=== PATIENT | male | born 1960 | race Caucasian/White ===

== ENCOUNTER 2021-01-18 13:11 | Emergency (ER) | payer OTHER ==
[2021-01-18] MEDS ORDERED: CYCLOBENZAPRINE10 MG PO (14:42)
[2021-01-18] MEDS ORDERED: MEDROL 4MG DOSEP4 MG PO (14:42)
[2021-02-04] MEDS ORDERED: NORVASC5 MG PO (14:18)
[2021-02-04] MEDS ORDERED: LIPITOR40 MG PO (14:18)
[2021-02-04] MEDS ORDERED: ELIQUIS5 MG PO (14:19)
[2021-02-04] MEDS ORDERED: OMEPRAZOLE20 M1 PO (14:19)
[2021-02-04] MEDS ORDERED: GABAPENTIN600 MG PO (14:20)
[2021-02-04] MEDS ORDERED: FENOFIBRATE160 MG PO (14:20)
[2021-02-04] MEDS ORDERED: HYDROCODON-ACE1 EAC1 PO (14:21)
[2021-02-04] MEDS ORDERED: BREO ELLIPTA 11 EACH INH (14:22)
[2021-02-10] MEDS ORDERED: NORCO 5-325 TA1 EACH PO (10:47)
[2021-03-12] MEDS ORDERED: VENTOLIN HFA IN18 GM INH (09:33)
[2021-03-12] MEDS ORDERED: VICODIN 10/3251 EACH PO (11:50)
== END 2021-01-18 15:07 | disposition home or self-care (01) ==
LOC: FER 13:11
DX: S33.5XXA Sprain of ligaments of lumbar spine, initial encounter (principal); S39.012A Strain of muscle, fascia and tendon of lower back, initial encounter; I10 Essential (primary) hypertension; Z98.1 Arthrodesis status; X50.9XXA Other and unspecified overexertion or strenuous movements or postures, initial encounter; Y92.009 Unspecified place in unspecified non-institutional (private) residence as the place of occurrence of the external cause
CPT/HCPCS: 72110; 96372; J1100; J1885

== ENCOUNTER 2021-01-27 16:45 | Emergency (ER) | payer OTHER ==
[~2021-01-27 16:45] MED LIST: CYCLOBENZAPRINE10 MG PO; MEDROL 4MG DOSEP4 MG PO
[2021-01-27 18:08] LABS: BASOPHIL 0.7 % (0-2); EOSINOPHIL 1.4 % (0-5); HCT 43.5 % (42.0-52.0); LYMPHOCYTE 34.4 % (15-48); MCHC 34.5 g/dL (32.0-36.0); MCV 92.8 fL (78.0-100.0); MONOCYTE 7.1 % (0-12); MPV 9.8 fL (6.0-9.5); NEUTROPHIL 56.1 % (41-80); NRBC 0; PLT 213 K/uL (150-400); RBC 4.69 M/uL (4.70-6.00); RDW 13.1 % (11.5-14.0); WBC 9.2 K/uL (4.0-10.5)
[2021-01-27 18:27] LABS: ALBUMIN 3.8 g/dL (3.4-5.0); BILIRUBIN - TOTAL 0.5 mg/dL (0.2-1.0); BUN/CREAT RATIO (CALC) 13.8 RATIO; CREATININE 0.8 mg/dL (0.67-1.17); GLOBULIN (CALCULATION) 3.3 g/dL; POTASSIUM 3.9 mmol/L (3.5-5.1); TOTAL PROTEIN 7.1 g/dL (6.4-8.2)
[2021-01-27 19:17] LABS: BILIRUBIN 1+ mg/dL (NEGATIVE); BLOOD NEGATIVE Ery/uL (NEGATIVE); CLARITY CLEAR (CLEAR); COLOR YELLOW (YELLOW); GLUCOSE (U) NORMAL (NORMAL); LEUKOCYTES NEGATIVE Leu/uL (NEGATIVE); NITRITE NEGATIVE (NEGATIVE); PROTEIN TRACE (LOW) mg/dL (NEGATIVE); SPECIFIC GRAVITY 1.025 (1.001-1.030); pH 5.5 (5.0-9.0)
[2021-01-27 19:32] LABS: CALCIUM OXALATE CRYSTALS TRACE
[2021-02-04] MEDS ORDERED: LIPITOR40 MG PO (14:18)
[2021-02-04] MEDS ORDERED: NORVASC5 MG PO (14:18)
[2021-02-04] MEDS ORDERED: OMEPRAZOLE20 M1 PO (14:19)
[2021-02-04] MEDS ORDERED: ELIQUIS5 MG PO (14:19)
[2021-02-04] MEDS ORDERED: FENOFIBRATE160 MG PO (14:20)
[2021-02-04] MEDS ORDERED: GABAPENTIN600 MG PO (14:20)
[2021-02-04] MEDS ORDERED: HYDROCODON-ACE1 EAC1 PO (14:21)
[2021-02-04] MEDS ORDERED: BREO ELLIPTA 11 EACH INH (14:22)
[2021-02-10] MEDS ORDERED: NORCO 5-325 TA1 EACH PO (10:47)
[2021-03-12] MEDS ORDERED: VENTOLIN HFA IN18 GM INH (09:33)
[2021-03-12] MEDS ORDERED: VICODIN 10/3251 EACH PO (11:50)
== END 2021-01-27 20:55 | disposition home or self-care (01) ==
LOC: FER 16:45
PROVIDERS: Emergency Medicine
DX: R10.9 Unspecified abdominal pain (principal); I10 Essential (primary) hypertension; F17.200 Nicotine dependence, unspecified, uncomplicated; E78.5 Hyperlipidemia, unspecified; Z90.89 Acquired absence of other organs; Z79.01 Long term (current) use of anticoagulants; Z79.899 Other long term (current) drug therapy
CPT/HCPCS: 36415; 80053; 81001; 82150; 83690; 85025; J1885; Q9967

== ENCOUNTER → 2021-02-10 | Day surgery (SDC) | payer OTHER ==
[~2021-02-10] VITALS: Ht 172.7 cm; Wt 97.5 kg
[~2021-02-10] MED LIST changes: +BREO ELLIPTA 11 EACH INH; +ELIQUIS5 MG PO; +FENOFIBRATE160 MG PO; +GABAPENTIN600 MG PO; +HYDROCODON-ACE1 EAC1 PO; +LIPITOR40 MG PO; +NORCO 5-325 TA1 EACH PO; +NORVASC5 MG PO; +OMEPRAZOLE20 M1 PO; +PERCOCET 7.5/321 TAB PO; +VENTOLIN HFA IN18 GM INH; +VIBRAMYCIN100 MG PO; +VICODIN 10/3251 EACH PO
== END | disposition home or self-care (01) ==
LOC: FAS 08:09
DX: T81.89XA Other complications of procedures, not elsewhere classified, initial encounter (principal); I10 Essential (primary) hypertension; Z96.659 Presence of unspecified artificial knee joint; E78.00 Pure hypercholesterolemia, unspecified; K21.9 Gastro-esophageal reflux disease without esophagitis; Z88.6 Allergy status to analgesic agent; Z79.01 Long term (current) use of anticoagulants
CPT/HCPCS: 93005; J1100; J1170; J2250; J2405; J2704; J3010; J7120

== ENCOUNTER 2021-02-14 07:04 | Emergency (ER) | payer OTHER ==
[~2021-02-14 07:04] MED LIST changes: -PERCOCET 7.5/321 TAB PO; -VENTOLIN HFA IN18 GM INH; -VIBRAMYCIN100 MG PO; -VICODIN 10/3251 EACH PO
[2021-02-14 08:08] LABS: BASOPHIL 0.7 % (0-2); HCT 38.3 % (42.0-52.0); HGB 13.2 g/dl (13.2-18.0); LYMPHOCYTE 23.7 % (15-48); MCH 31.8 pg (25.0-31.0); MCHC 34.5 g/dL (32.0-36.0); MCV 92.3 fL (78.0-100.0); MONOCYTE 8.9 % (0-12); NEUTROPHIL 62.2 % (41-80); NRBC 0; PLT 210 K/uL (150-400); RBC 4.15 M/uL (4.70-6.00); RDW 13.4 % (11.5-14.0)
[2021-02-14 08:09] LABS: BILIRUBIN NEGATIVE (NEGATIVE); BLOOD NEGATIVE Ery/uL (NEGATIVE); CLARITY CLEAR (CLEAR); COLOR YELLOW (YELLOW); GLUCOSE (U) 2+ mg/dL (NORMAL); LEUKOCYTES NEGATIVE Leu/uL (NEGATIVE); NITRITE NEGATIVE (NEGATIVE); PROTEIN NEGATIVE (NEGATIVE); UROBILINOGEN 0.2 mg/dL (0.2-1.0)
[2021-02-14 08:15] LABS: WBC 8.9 K/uL (4.0-10.5)
[2021-02-14 08:18] LABS: INR 1.04 (0.9-1.2); PTT 33.1 SECONDS (24.4-34.7)
[2021-02-14 08:27] LABS: ALBUMIN 3.3 g/dL (3.4-5.0); BILIRUBIN - TOTAL 0.4 mg/dL (0.2-1.0); BUN/CREAT RATIO (CALC) 25.4 RATIO; CREATININE 0.67 mg/dL (0.67-1.17); GLOBULIN (CALCULATION) 3.5 g/dL; POTASSIUM 3.7 mmol/L (3.5-5.1); TOTAL PROTEIN 6.8 g/dL (6.4-8.2)
[2021-02-14 08:33] LABS: LACTIC ACID 1.1 mmol/L (0.4-1.9)
[2021-02-14] MEDS ORDERED: VIBRAMYCIN100 MG PO (12:04)
[2021-02-14] MEDS ORDERED: PERCOCET 7.5/321 TAB PO (12:04)
[2021-03-12] MEDS ORDERED: VENTOLIN HFA IN18 GM INH (09:33)
[2021-03-12] MEDS ORDERED: VICODIN 10/3251 EACH PO (11:50)
== END 2021-02-14 12:20 | disposition home or self-care (01) ==
LOC: FER 07:04
PROVIDERS: Emergency Medicine
DX: T81.40XA Infection following a procedure, unspecified, initial encounter (principal); R10.9 Unspecified abdominal pain; I10 Essential (primary) hypertension; Z98.890 Other specified postprocedural states; Z20.822 Contact with and (suspected) exposure to COVID-19; Y83.8 Other surgical procedures as the cause of abnormal reaction of the patient, or of later complication, without mention of misadventure at the time of the procedure
CPT/HCPCS: 36415; 80053; 81003; 83605; 85025; 85610; 85730; 87040; J1170; J2543; Q9967; U0002

== ENCOUNTER → 2021-03-12 | Day surgery (SDC) | payer OTHER ==
[~2021-03-12] VITALS: Ht 172.7 cm; Wt 97.5 kg
[~2021-03-12] MED LIST changes: +PERCOCET 7.5/321 TAB PO; +VENTOLIN HFA IN18 GM INH; +VIBRAMYCIN100 MG PO; +VICODIN 10/3251 EACH PO
[2021-03-12 09:49] LABS: HCT 36.9 % (42.0-52.0); HGB 12.8 g/dl (13.2-18.0); MCH 32.2 pg (25.0-31.0); MCHC 34.7 g/dL (32.0-36.0); MCV 92.7 fL (78.0-100.0); RBC 3.98 M/uL (4.70-6.00); RDW 13.2 % (11.5-14.0); WBC 6.9 K/uL (4.0-10.5)
[2021-03-12 10:09] LABS: ALBUMIN 3.4 g/dL (3.4-5.0); BILIRUBIN - TOTAL 0.4 mg/dL (0.2-1.0); BUN/CREAT RATIO (CALC) 25.8 RATIO; CREATININE 0.62 mg/dL (0.67-1.17); GLOBULIN (CALCULATION) 3.3 g/dL; POTASSIUM 3.6 mmol/L (3.5-5.1); TOTAL PROTEIN 6.7 g/dL (6.4-8.2)
== END | disposition home or self-care (01) ==
LOC: FAS 08:53
PROVIDERS: Surgery
DX: L76.32 Postprocedural hematoma of skin and subcutaneous tissue following other procedure (principal); I10 Essential (primary) hypertension; E78.00 Pure hypercholesterolemia, unspecified; K21.9 Gastro-esophageal reflux disease without esophagitis; E66.9 Obesity, unspecified; E78.5 Hyperlipidemia, unspecified; F17.290 Nicotine dependence, other tobacco product, uncomplicated; Z79.01 Long term (current) use of anticoagulants; Z86.711 Personal history of pulmonary embolism; Z96.653 Presence of artificial knee joint, bilateral; Z98.1 Arthrodesis status
CPT/HCPCS: 36415; 80053; J1100; J1170; J2250; J2405; J2704; J3010; J7120

== ENCOUNTER 2021-04-07 10:10 | Emergency (ER) | payer OTHER ==
[~2021-04-07] VITALS: Ht 172.7 cm; Wt 97.5 kg
[2021-04-07 12:55] LABS: BILIRUBIN NEGATIVE (NEGATIVE); BLOOD NEGATIVE Ery/uL (NEGATIVE); CLARITY CLEAR (CLEAR); COLOR YELLOW (YELLOW); GLUCOSE (U) TRACE mg/dL (NORMAL); LEUKOCYTES NEGATIVE Leu/uL (NEGATIVE); NITRITE NEGATIVE (NEGATIVE); PROTEIN NEGATIVE (NEGATIVE); UROBILINOGEN 0.2 mg/dL (0.2-1.0)
[2021-04-07 12:55] LABS: EOSINOPHIL 3.5 % (0-5); HCT 41.9 % (42.0-52.0); MCHC 33.4 g/dL (32.0-36.0); MCV 92.7 fL (78.0-100.0); MONOCYTE 6.1 % (0-12); MPV 9.5 fL (6.0-9.5); NEUTROPHIL 50.7 % (41-80); NRBC 0; PLT 217 K/uL (150-400); RBC 4.52 M/uL (4.70-6.00); RDW 13.1 % (11.5-14.0); WBC 9.1 K/uL (4.0-10.5)
[2021-04-07 13:00] LABS: LYMPHOCYTE 38.4 % (15-48)
[2021-04-07 13:15] LABS: ALBUMIN 3.5 g/dL (3.4-5.0); BILIRUBIN - TOTAL 0.4 mg/dL (0.2-1.0); BUN/CREAT RATIO (CALC) 16.4 RATIO; CREATININE 0.73 mg/dL (0.67-1.17); GLOBULIN (CALCULATION) 3.4 g/dL; POTASSIUM 3.9 mmol/L (3.5-5.1); TOTAL PROTEIN 6.9 g/dL (6.4-8.2)
[2021-04-07] MEDS ORDERED: PERCOCET 5-3251 EACH PO (15:50)
== END 2021-04-07 16:16 | disposition home or self-care (01) ==
LOC: FER 10:10
PROVIDERS: Nurse Practitioner Family
DX: R10.9 Unspecified abdominal pain (principal); E78.5 Hyperlipidemia, unspecified; I10 Essential (primary) hypertension; J44.9 Chronic obstructive pulmonary disease, unspecified
CPT/HCPCS: 36415; 76705; 80053; 81003; 83605; 85025; J2270; J7030

== ENCOUNTER → 2021-04-17 | Day surgery (SDC) | payer OTHER ==
[~2021-04-17] VITALS: Ht 172.7 cm; Wt 97.5 kg
[~2021-04-17] MED LIST changes: +PERCOCET 5-3251 EACH PO
[2021-04-17 10:11] LABS: HCT 39.7 % (42.0-52.0); HGB 13.2 g/dl (13.2-18.0); MCH 31.1 pg (25.0-31.0); MCHC 33.2 g/dL (32.0-36.0); MCV 93.4 fL (78.0-100.0); MPV 9.7 fL (6.0-9.5); RBC 4.25 M/uL (4.70-6.00); RDW 12.9 % (11.5-14.0); WBC 7.1 K/uL (4.0-10.5)
[2021-04-17 10:38] LABS: INR 0.98 (0.9-1.2); PROTHROMBIN TIME 12.4 SECONDS (11.8-13.4); PTT 30.6 SECONDS (24.4-34.7)
[2021-04-17 10:47] LABS: ALBUMIN 3.3 g/dL (3.4-5.0); BILIRUBIN - TOTAL 0.3 mg/dL (0.2-1.0); BUN/CREAT RATIO (CALC) 25.4 RATIO; CREATININE 0.67 mg/dL (0.67-1.17); GLOBULIN (CALCULATION) 3.4 g/dL; POTASSIUM 4.1 mmol/L (3.5-5.1); TOTAL PROTEIN 6.7 g/dL (6.4-8.2)
== END | disposition home or self-care (01) ==
LOC: FAS 08:51
PROVIDERS: Surgery
DX: T81.89XA Other complications of procedures, not elsewhere classified, initial encounter (principal); L92.8 Other granulomatous disorders of the skin and subcutaneous tissue; L02.211 Cutaneous abscess of abdominal wall; I10 Essential (primary) hypertension; E78.5 Hyperlipidemia, unspecified; K21.9 Gastro-esophageal reflux disease without esophagitis; G89.29 Other chronic pain; M54.9 Dorsalgia, unspecified; F17.210 Nicotine dependence, cigarettes, uncomplicated; Z86.711 Personal history of pulmonary embolism; Z96.653 Presence of artificial knee joint, bilateral; Z88.6 Allergy status to analgesic agent; Z79.01 Long term (current) use of anticoagulants; Z79.899 Other long term (current) drug therapy
CPT/HCPCS: 36415; 80053; 85610; 85730; J1170; J1885; J2250; J2704; J3010; J7120

== ENCOUNTER 2021-09-25 12:16 | Emergency (ER) | payer OTHER ==
[2021-09-25 13:11] LABS: BILIRUBIN NEGATIVE (NEGATIVE); BLOOD NEGATIVE Ery/uL (NEGATIVE); CLARITY CLEAR (CLEAR); COLOR YELLOW (YELLOW); GLUCOSE (U) NORMAL (NORMAL); LEUKOCYTES NEGATIVE Leu/uL (NEGATIVE); NITRITE NEGATIVE (NEGATIVE); PROTEIN NEGATIVE (NEGATIVE); UROBILINOGEN 0.2 mg/dL (0.2-1.0); pH 6.5 (5.0-9.0)
[2021-09-25 13:14] LABS: BASOPHIL 0.6 % (0-2); EOSINOPHIL 2.6 % (0-5); HCT 41.9 % (42.0-52.0); HGB 14.1 g/dl (13.2-18.0); LYMPHOCYTE 33.4 % (15-48); MCH 31.5 pg (25.0-31.0); MCHC 33.7 g/dL (32.0-36.0); MCV 93.5 fL (78.0-100.0); MONOCYTE 5.5 % (0-12); MPV 10.1 fL (6.0-9.5); NEUTROPHIL 57.8 % (41-80); NRBC 0; PLT 217 K/uL (150-400); RBC 4.48 M/uL (4.70-6.00); RDW 12.5 % (11.5-14.0); WBC 6.9 K/uL (4.0-10.5)
[2021-09-25 13:35] LABS: ALBUMIN 3.6 g/dL (3.4-5.0); BILIRUBIN - TOTAL 0.3 mg/dL (0.2-1.0); BUN/CREAT RATIO (CALC) 14.5 RATIO; CREATININE 0.62 mg/dL (0.67-1.17); GLOBULIN (CALCULATION) 3.3 g/dL; POTASSIUM 3.7 mmol/L (3.5-5.1); TOTAL PROTEIN 6.9 g/dL (6.4-8.2)
== END 2021-09-25 14:09 | disposition home or self-care (01) ==
LOC: FER 12:16
PROVIDERS: Emergency Medicine
DX: K40.90 Unilateral inguinal hernia, without obstruction or gangrene, not specified as recurrent (principal); F17.200 Nicotine dependence, unspecified, uncomplicated
CPT/HCPCS: 36415; 80053; 81003; 85025; 99283; J1885

== ENCOUNTER → 2021-10-01 | Day surgery (SDC) | payer OTHER ==
[~2021-10-01] VITALS: Ht 172.7 cm; Wt 97.5 kg
[2021-10-01 09:42] LABS: HCT 40.5 % (42.0-52.0); HGB 13.9 g/dl (13.2-18.0); MCHC 34.3 g/dL (32.0-36.0); MCV 93.1 fL (78.0-100.0); MPV 9.8 fL (6.0-9.5); RBC 4.35 M/uL (4.70-6.00); RDW 12.7 % (11.5-14.0); WBC 7.5 K/uL (4.0-10.5)
[2021-10-01 09:55] LABS: ALBUMIN 3.7 g/dL (3.4-5.0); BILIRUBIN - TOTAL 0.3 mg/dL (0.2-1.0); CREATININE 0.6 mg/dL (0.67-1.17); TOTAL PROTEIN 6.7 g/dL (6.4-8.2)
== END | disposition home or self-care (01) ==
LOC: FAS 08:42
PROVIDERS: Surgery
DX: D17.6 Benign lipomatous neoplasm of spermatic cord (principal); K40.90 Unilateral inguinal hernia, without obstruction or gangrene, not specified as recurrent; E78.5 Hyperlipidemia, unspecified; Z88.8 Allergy status to other drugs, medicaments and biological substances; Z79.01 Long term (current) use of anticoagulants
CPT/HCPCS: 36415; 80053; 93005; C1781; J0690; J1100; J1170; J2250; J2405; J2704; J3010; J7120

== ENCOUNTER → 2021-10-17 | Day surgery (SDC) | payer OTHER ==
[~2021-10-17] VITALS: Ht 172.7 cm; Wt 97.5 kg
[~2021-10-17] MED LIST changes: +ENDOCET 10-3251 EACH PO
[2021-10-17 13:24] LABS: BASOPHIL 0.9 % (0-2); EOSINOPHIL 2.1 % (0-5); HCT 43.9 % (42.0-52.0); LYMPHOCYTE 29.4 % (15-48); MCH 31.5 pg (25.0-31.0); MCHC 34.2 g/dL (32.0-36.0); MCV 92.2 fL (78.0-100.0); MONOCYTE 5.9 % (0-12); MPV 9.4 fL (6.0-9.5); NEUTROPHIL 61.5 % (41-80); NRBC 0; PLT 234 K/uL (150-400); RBC 4.76 M/uL (4.70-6.00); RDW 12.9 % (11.5-14.0)
[2021-10-17 13:46] LABS: ALBUMIN 3.6 g/dL (3.4-5.0); BILIRUBIN - TOTAL 0.4 mg/dL (0.2-1.0); BUN/CREAT RATIO (CALC) 19.7 RATIO; CREATININE 0.66 mg/dL (0.67-1.17); GLOBULIN (CALCULATION) 3.7 g/dL; LACTIC ACID 0.9 mmol/L (0.4-1.9); TOTAL PROTEIN 7.3 g/dL (6.4-8.2)
[2021-10-17 14:20] LABS: TOTAL CELL COUNT 100
[2021-10-17 14:24] LABS: NEUTROPHILS(M) 68 % (41-80)
[2021-10-17 14:25] LABS: BLAST 1; LYMPHOCYTE(M) 31 % (15-48); PLATELET ESTIMATE NORMAL; PLATELET MORPHOLOGY NORMAL
--- NOTE | 2021-10-17 21:03 | NUR ---
Spoke with Dr. Parada concerning patient's post op pain medication script. The order was sent over to [facility]. However, they are closed until Tuesday. Pt was concered about not having pain medication until Tuesday and wanting to stay overnight. Can keep patient through the night for pain control and D/C in the morning per Dr. Parada. Pt denies wanting to stay the night and will D/C home.
== END | disposition home or self-care (01) ==
LOC: FER 11:54 → FOR 16:43
PROVIDERS: Emergency Medicine
DX: T81.49XA Infection following a procedure, other surgical site, initial encounter (principal); K40.30 Unilateral inguinal hernia, with obstruction, without gangrene, not specified as recurrent; E78.5 Hyperlipidemia, unspecified; F17.210 Nicotine dependence, cigarettes, uncomplicated; I10 Essential (primary) hypertension; Y83.8 Other surgical procedures as the cause of abnormal reaction of the patient, or of later complication, without mention of misadventure at the time of the procedure; Z88.6 Allergy status to analgesic agent; Z79.01 Long term (current) use of anticoagulants; Z98.890 Other specified postprocedural states; Z20.822 Contact with and (suspected) exposure to COVID-19
CPT/HCPCS: 36415; 80053; 83605; 84145; 87040; 87070; 87075; 87077; 87186; 87205; J1170; J2250; J2270; J2405; J2543; J2704; J3010; Q9967; U0002

== ENCOUNTER 2022-03-30 13:20 | Emergency (ER) | payer OTHER ==
[2022-03-30 16:08] LABS: BILIRUBIN NEGATIVE (NEGATIVE); BLOOD NEGATIVE Ery/uL (NEGATIVE); CLARITY CLEAR (CLEAR); COLOR YELLOW (YELLOW); GLUCOSE (U) 3+ mg/dL (NORMAL); LEUKOCYTES NEGATIVE Leu/uL (NEGATIVE); NITRITE NEGATIVE (NEGATIVE); PROTEIN NEGATIVE (NEGATIVE); SPECIFIC GRAVITY 1.015 (1.001-1.030); UROBILINOGEN 0.2 mg/dL (0.2-1.0)
[2022-03-30 16:12] LABS: BASOPHIL 1.1 % (0-2); EOSINOPHIL 3.2 % (0-5); HCT 42.2 % (42.0-52.0); HGB 14.7 g/dl (13.2-18.0); MCH 32.2 pg (25.0-31.0); MCHC 34.8 g/dL (32.0-36.0); MCV 92.5 fL (78.0-100.0); MONOCYTE 5.4 % (0-12); MPV 9.7 fL (6.0-9.5); NRBC 0; PLT 207 K/uL (150-400); RBC 4.56 M/uL (4.70-6.00); RDW 12.4 % (11.5-14.0)
[2022-03-30 16:18] LABS: WBC 7.3 K/uL (4.0-10.5)
[2022-03-30 16:47] LABS: ALBUMIN 3.8 g/dL (3.4-5.0); BILIRUBIN - TOTAL 0.3 mg/dL (0.2-1.0); CREATININE 0.63 mg/dL (0.67-1.17); GLOBULIN (CALCULATION) 3.2 g/dL; POTASSIUM 4.2 mmol/L (3.5-5.1)
== END 2022-03-30 18:56 | disposition home or self-care (01) ==
LOC: FER 13:20
PROVIDERS: Nurse Practitioner Family
DX: N20.0 Calculus of kidney (principal); I71.4 Abdominal aortic aneurysm, without rupture; I10 Essential (primary) hypertension
CPT/HCPCS: 36415; 80053; 81003; 85025; J2270; Q9967